=== PATIENT | female | born 1955 | race Caucasian/White ===

== ENCOUNTER 2019-03-01 12:29 | Emergency (ER) | payer MEDICAID ==
[~2019-03-01] VITALS: Ht 167.6 cm; Wt 92.3 kg
[2019-03-01 12:45] VITALS: BP 159/98
[2019-03-01] MEDS ORDERED: ketorolac trometh inj. 60 MG/2 ML VIAL IM ONE (14:25)
[2019-03-01] MEDS ORDERED: HYDROcodone/acetaminophen 5mg/325mg tablet PO ONE (14:25)
[2019-03-01] MEDS ORDERED: orphenadrine citrate 60mg/2ml inj. IM ONE (14:25)
[2019-03-01] MEDS ORDERED: CYCL-1 PO (14:28)
[2019-03-01] MEDS ORDERED: NAPR-56 PO (14:28)
== END 2019-03-01 14:46 | disposition home or self-care (01) ==
LOC: ER 12:29
DX: S13.4XXA Sprain of ligaments of cervical spine, initial encounter (principal); Z79.899 Other long term (current) drug therapy; V89.2XXA Person injured in unspecified motor-vehicle accident, traffic, initial encounter; Y93.89 Activity, other specified; Y92.488 Other paved roadways as the place of occurrence of the external cause; Y99.8 Other external cause status
CPT/HCPCS: 96372; 99283; J1885; J2360